=== PATIENT | male | born 1995 | race Two or more races ===

== ENCOUNTER 2025-05-12 11:35 | Emergency (ER) | payer SELFPAY ==
[~2025-05-12] VITALS: Ht 180.3 cm; Wt 95.9 kg
[2025-05-12 11:35] VITALS: TEMP 98.1
--- NOTE | 2025-05-12 12:24 | ECG ---
[facility] Test Date: 2025-05-12 Test Time: 11:42:38 Pat Name: DIAZ GARCIA Department: [facility] ED Patient ID: [id number] Room: Gender: M Chyron Operator: GLORIA : 1995 Requested By: AUGUSTINE EPPERSON Order Number: [id number] Reading MD: Butch Larikn Measurements Intervals [place] Rate: 72 P: 50 RI: 148 QRS: 60 QRSD: 101 T: 47 QT: 371 QTc: 406 Interpretive Statements Sinus rhythm Electronically Signed On 05-12-2025 17:02:03 PDT by Butch Larkin Please click the below link to view image of tracing.
--- NOTE | 2025-05-12 12:49 | ED.PDOC ---
HPI Comments 29 y/o M, with no prior medical history, presents to the ED for CC of chest pain. Patient states, he has been experiencing intermittent, non-radiating, left-sided chest pain x5days. Patient reports, that he has experienced similar symptoms in the past and was told cause was non-cardiac in origin. Patient describes pain to be "tight" in nature. Patient denies shortness of breath, palpitations, nausea, vomiting, dizziness, or headache. No other symptoms or modifying factors are present at this time. Chief Complaint: Chest Pain Time Seen by MD: 12:00 Reviewed Notes: Nurses Notes, Medications, Allergies Allergies: Coded Allergies: NO KNOWN ALLERGIES (Unverified , 05/12/25) Information Source: Patient Mode of Arrival: Ambulatory Severity: Moderate Timing: Days Duration: Since onset Prehospital treatment: None Location: Chest (L) Radiation: No Radiation Quality: Tightness Onset: At Rest Cardiac Risk Factors: None PE Risk Factors: None History of: None Modifying Factors: Nothing Associated Signs and Symptoms: None Past Medical History PAST MEDICAL HISTORY: Denies Surgical History: Denies all surgeries Family History Family History: Unknown Social History Smoker: Non-Smoker Alcohol: Denies ETOH Use Drugs: Denies Drug Use Lives In: Home Constitutional: denies: chills, diaphoresis, fatigue, fever, malaise, sweats, weakness, others EENTM: denies: blurred vision, double vision, ear bleeding, ear discharge, ear drainage, ear pain, ear ringing, eye pain, eye redness, hearing loss, mouth mike n, mouth swelling, nasal discharge, nose bleeding, nose congestion, nose pain, photophobia, tearing, throat pain, throat swelling, voice changes, others Respiratory: denies: cough, hemoptysis, orthopnea, SOB at rest, shortness of breath, SOB with excertion, stridor, wheezing, others Cardiovascular: reports: chest pain; denies: dizzy spells, diaphoresis, Dyspnea on exertion, edema, irregular heart beat, left arm pain, lightheadedness, palpitations, PND, syncope, others Gastrointestinal: denies: abdomen distended, abdominal pain, blood streaked bowels, constipated, diarrhea, dysphagia, difficulty swallowing, hematemesis, melena, nausea, poor appetite, poor fluid intake, rectal bleeding, rectal pain, vomiting, others Genitourinary: denies: burning, dysuria, flank pain, frequency, hematuria, incontinence, penile discharge, penile sore, pain, testicle pain, testicle swelling, urgency, others Neurological: denies: dizziness, fainting, headache, left sided numbness, left sided weakness, numbness, paresthesia, pre-existing deficit, right sided numbness, right sided weakness, seizure, speech problems, tingling, tremors, weakness, others Musculoskeletal: denies: back pain, gout, joint pain, joint swelling, muscle pain, muscle stiffness, neck pain, others Integumetry: denies: bruises, change in color, change in hair/nails, dryness, laceration, lesions, lumps, rash, wounds, others Allergic/Immunocompromised: denies: Difficulty Healing, Frequent Infections, Hives, Itching, others Hematologic/Lymphatic: denies: anemia, blood clots, easy bleeding, easy bruising, swollen glands, others Endocrine: denies: excessive hunger, excessive sweating, excessive thirst, excessive urination, flushing, intolerance to cold, intolerance to heat, unexplained weight gain, unexplained weight loss, others Psychiatric: denies: anxiety, bipolar disorder, depression, hopeless, panic disorder, schizophrenia, sleepless, suicidal, others All Other Systems: Reviewed and Negative Physical Exam General Appearance: Moderate Distress HEENT: Normal ENT Inspection, Pharynx Normal, TMs Normal Neck: Full Range of Motion, Non-Tender, Normal, Normal Inspection Respiratory: Chest Non-Tender, Lungs Clear, No Accessory Muscle Use, No Respiratory Distress, Normal Breath Sounds Cardiovascular: No Edema, No JVD, No Murmur, No Gallop, Normal Peripheral Pulses, Regular Rate/Rhythm Breast Exam: Deferred Gastrointestinal: No Organomegaly, Non Tender, No Pulsatile Mass, Normal Bowel Sounds, Soft Genitalia: Deferred Pelvic: Deferred Rectal: Deferred Extremities: No calf tenderness, Normal capillary refill, Normal inspection, Normal range of motion, Non-tender, No pedal edema Musculoskeletal : Apperance: Normal Neurologic: Alert, comic artist II-XII nml as Tested, No Motor Deficits, Normal Affect, Normal Mood, No Sensory Deficits Cerebellar Function: Normal Reflexes: Normal Skin: Dry, Normal Color, Warm Peripheral Pulses: 3+ Radial (R), 3+ Radial (L) Lymphatic: No Adenopathy Was a procedure done? Was a procedure done?: No CP Differential Dx Differential Diagnosis: A-fib, A-Flutter, Angina, Anxiety / Panic Attack, Atrial Dysrhythmia, Electrolyte Disorder Differential Diagnosis: Angina, Chest Wall Pain, Costochondritis, Esophageal reflux/spasm, Gastritis X-Ray, Labs, Meds, VS Vital Signs Date Time Temp Pulse Resp B/P (MAP) Pulse Ox O2 Delivery O2 Flow Rate FiO2 05/12/25 14:15 142/94 05/12/25 14:11 61 05/12/25 14:11 61 18 142/94 (110) 98 05/12/25 12:24 58 05/12/25 11:42 72 05/12/25 11:35 98.1 84 16 150/87 95 98.1 Lab Test 05/12/25 12:52 05/12/25 11:47 Range/Units Troponin I High Sensitivity < 3 L < 3 L </=54 ng/L D-Dimer, Quantitative 0.39 0.0-0.49 mg/L FEU Current Medications Medications (Trade) Dose Ordered Sig/Rolly Route Start Time Stop Time Status Last Admin Aspirin 325 mg ONCE ONCE PO 05/12/25 13:45 05/12/25 13:46 DC 05/12/25 14:15 Nitroglycerin (Ntrostat Sublingual) 0.4 mg ONCE ONCE SL 05/12/25 13:45 05/12/25 13:46 DC 05/12/25 14:15 [place] [id number] Ph: [phone] DIAGNOSTIC IMAGING Diagnostic Imaging Report : [id number] Signed PATIENT: BRANDEN GARCIA ACCT: [id number] UNIT: [id number] : 1995 LOC: ER ROOM / BED: / AGE / SEX: 29 / M ADM STATUS: REG ER SERVICE 1214 ORDERING PHYSICIAN: AUGUSTINE EPPERSON MD PROCEDURE(s): CXRP - CHEST PORTABLE REASON: sob ORDER NUMBER(s): [id number], ACCESSION NUMBER(s): [id number] CHEST RADIOGRAPH Indication: sob Technique: Single frontal view of the chest was obtained Comparison: None FINDINGS: Lines and Tubes: None Lungs: No focal consolidation. Pleura: No effusion. No pneumothorax. Cardiomediastinal contours: Unremarkable Bones: No acute osseous abnormality. IMPRESSION: No acute cardiopulmonary disease. ATED BY: PHUONG MORALES DO DICTATED DATE/TIME: 05/12/251255 SIGNED BY: PHUONG MORALES DO SIGNED DATE/TIME: 05/12/256 CC: Patient alert. Came in because of chest discomfort. Vitals stable. Answering questions. Was given aspirin. Was given nitro. No sign of distress. EKG reviewed does not show any acute process. Chest x-ray reviewed does not show any acute process. Explained to the patient. Was told to follow up with his primary care physician. Was told to come back if there is any problem. Time of 1ST Reevaluation: 12:30 Reevaluation 1ST: Unchanged Patient Education/Counseling: Diagnosis, Treatment Family Education/Counseling: No Family Present SEPSIS Sepsis Screen Date sepsis recognized/suspect: May 12, 2025 Time Sepsis recognized/suspect: 1135 Recent Procedure: No On Antibiotic Therapy: No Respiratory Rate >20: No Heart Rate >90: No Temp<36 C (96.8 F) or >38.3 C: No SBP <90 or MAP <65 mmHG: No New Acute Mental Status Change: No Is the patient on CPAP, BIPAP,: No Physician Orders Chest Portable (05/12/25 12:14) Electrocardigram (05/12/25 14:35) Vital Signs Date Time Temp Pulse Resp B/P (MAP) Pulse Ox O2 Delivery O2 Flow Rate FiO2 05/12/25 14:15 142/94 05/12/25 14:11 61 05/12/25 14:11 61 18 142/94 (110) 98 05/12/25 12:24 58 05/12/25 11:42 72 05/12/25 11:35 98.1 84 16 150/87 95 98.1 Medications Medications Dose Ordered Sig/Rolly Route Start Time Stop Time Status Last Admin Dose Admin Aspirin 325 mg ONCE ONCE PO 05/12/25 13:45 05/12/25 13:46 DC 05/12/25 14:15 Nitroglycerin 0.4 mg ONCE ONCE SL 05/12/25 13:45 05/12/25 13:46 DC 05/12/25 14:15 Departure 1 Departure Time of Disposition: 13:31 Impression: Primary Impression: Musculoskeletal chest pain Disposition: HOME / SELF CARE / HOMELESS Condition: Good Discharged With: Self Critical Care Note Critical Care Time?: No Stability Stability form required: No Heart Score Heart Score: Heart Score Response (Comments) Value History N/A 0 EKG N/A 0 Age <45 0 Risk Factors No known risk factors 0 Troponin Normal limit 0 Total 0 I personally scribed for AUGUSTINE EPPERSON MD ([email or web address]) on 05/12/25 at 12:48. Electronically submitted by Sumi Woodruff ([email or web address]). I personally scribed for AUGUSTINE EPPERSON MD ([email or web address]) on 05/12/25 at 13:07. Electronically submitted by Sumi Woodruff ([email or web address]). I personally scribed for AUGUSTINE EPPERSON MD ([email or web address]) on 05/12/25 at 15:23. Electronically submitted by Chemo Jo ([email or web address]). AUGUSTINE EPPERSON MD May 12, 2025 12:48
--- NOTE | 2025-05-12 12:58 | DVH ---
CHEST RADIOGRAPH Indication: sob Technique: Single frontal view of the chest was obtained Comparison: None FINDINGS: Lines and Tubes: None Lungs: No focal consolidation. Pleura: No effusion. No pneumothorax. Cardiomediastinal contours: Unremarkable Bones: No acute osseous abnormality. IMPRESSION: No acute cardiopulmonary disease.
--- NOTE | 2025-05-12 13:37 | ECG ---
[facility] Test Date: 2025-05-12 Test Time: 12:24:04 Pat Name: DIAZ GARCIA Department: [facility] ED Patient ID: [id number] Room: Gender: M Company Secretary: ER : 1995 Requested By: AUGUSTINE EPPERSON Order Number: [id number] Reading MD: Butch Larkin Measurements Intervals [place] Rate: 58 P: 50 NH: 151 QRS: 50 QRSD: 105 T: 51 QT: 384 QTc: 378 Interpretive Statements Sinus rhythm Electronically Signed On 05-12-2025 17:02:13 PDT by Butch Larkin Please click the below link to view image of tracing.
[2025-05-12] MEDS: NITROGLYCERIN 0.4 MG SL TAB SL ONE (14:15)
[2025-05-12 16:12] VITALS: BP 133/78; PULSE 55; RESP 18; O2SAT 98
== END 2025-05-12 16:14 | disposition home or self-care (01) ==
LOC: ER 11:35
DX: R07.89 Other chest pain (principal); Z79.899 Other long term (current) drug therapy
CPT/HCPCS: 36415; 71045; 84484; 85379; 93005